=== PATIENT | female | born 1990 | race Caucasian/White ===

== ENCOUNTER 2020-03-04 14:01 | Emergency (ER) | payer MEDICAID ==
[~2020-03-04] VITALS: Ht 160 cm; Wt 79.3 kg
[2020-03-04 14:05] VITALS: BP 173/91
--- NOTE | 2020-03-04 14:14 | NUR ---
Pt here for upper and lower left tooth pain. Pt reports poor oral hygiene and has cracked teeth as well. Pt reports she has not seen dentist in a long time.
[2020-03-04] MEDS ORDERED: HYDROcodone/APAP 5/325 TABLET ONE (14:37)
--- NOTE | 2020-03-04 14:41 | NUR ---
PT MEDICATED FOR PAIN Patient/Caregiver given discharge instructions and they have confirmed that they understand the instructions. Patient ambulatory with steady gait.
[2020-03-04] MEDS ORDERED: HYDROcodone/APAP 5/325 TABLET PO ONE (15:00)
[2020-03-04] MEDS ORDERED: PLEASE ENTER ALLERGIES MC SCH (15:00)
== END 2020-03-04 14:43 | disposition home or self-care (01) ==
LOC: ED 14:30
DX: K02.9 Dental caries, unspecified (principal)
CPT/HCPCS: 99283